=== PATIENT | female | born 2000 | race Two or more races ===

== ENCOUNTER 2024-09-18 14:30 | Outpatient (AMB) | payer OTHER, SELFPAY ==
--- NOTE | 2024-09-18 14:32 | MHC.OFFVIS ---
Intake Visit Reasons: Amenorrhea HPI Comments Details: Presenting complaining of pelvic cramping and increasing menstrual flow during her menstrual cycles since ParaGard IUD insertion 2 years ago no other associated GI or symptoms. No previous Pap smear. The patient is requesting STD screening. Review of Systems Const All systems reviewed & are unremarkable except as noted in HPI and below Reports as per HPI and Reports no additional complaints GI Reports no additional complaints Reports no additional complaints Physical Exam Other: The patient declined and would like to defer the exam for next visit Assessment & Plan Assessment & Plan (1) IUD check up: Code(s): Z30.431 - Encounter for routine checking of intrauterine contraceptive device Category: Medical Plan: Urine test done in the office was negative. Will order pelvic ultrasound to evaluate the location of the IUD. Instructions given the patient to schedule ultrasound follow-up appoint (2) Dysmenorrhea: Code(s): N94.6 - Dysmenorrhea, unspecified Category: Medical Plan: Discussed with the patient differential diagnosis dysmenorrhea, will schedule pelvic exam within 2 weeks, order pelvic ultrasound and collect GC and chlamydia with BV panel. All questions answered, the patient verbalized understood (3) Screen for STD (sexually transmitted disease): Code(s): Z11.3 - Encounter for screening for infections with a predominantly sexual mode of transmission Category: Medical Plan: STD screening tests done includes: BV panel for trichomonas, GC/CT will be done next during next visit since the patient declined pelvic exam, will send patient for serology std screening for HIV, RPR, Hep b s Ag, HepC Ab. Instructions given the patient to schedule a follow-up appointment for repeat serology screen in 6 months for possible false negatives. Orders: Orders US pelvic and transvaginal Today Z30.431 - Encounter for routine checking of intrauterine contraceptive device HIV Ab/Ag Today Z20.2 - Contact with and (suspected) exposure to infections with a predominantly sexual mode of transmission Syphilis Screen Today Z20.2 - Contact with and (suspected) exposure to infections with a predominantly sexual mode of transmission Hepatitis B Surface Antigen Today Z20.2 - Contact with and (suspected) exposure to infections with a predominantly sexual mode of transmission Hepatitis C Antibody Today Z20.2 - Contact with and (suspected) exposure to infections with a predominantly sexual mode of transmission Coding Level of Care Code New Pt Level 3 (99398) Diagnoses IUD check up Z30.431 Dysmenorrhea N94.6 Screen for STD (sexually transmitted disease) Z11.3
== END 2024-09-18 15:17 | disposition home or self-care (01) ==
PROVIDERS: PCP Internal Medicine; Visit Provider Obstetrics & Gynecology
DX: Z30.431 Encounter for routine checking of intrauterine contraceptive device (principal); N94.6 Dysmenorrhea, unspecified
CPT/HCPCS: 99203

== ENCOUNTER → 2024-09-18 14:30 | Outpatient (BNVA) | payer OTHER, SELFPAY | PROVIDERS: PCP Internal Medicine; Visit Provider Obstetrics & Gynecology | DX: Z30.431 Encounter for routine checking of intrauterine contraceptive device (principal); N94.6 Dysmenorrhea, unspecified | CPT/HCPCS: 99202 ==

== ENCOUNTER 2024-10-22 16:32 | Outpatient (REF) | payer OTHER, SELFPAY | END 2024-10-22 16:33 | disposition home or self-care (01) | LOC: HO.US 16:32 | PROVIDERS: PCP Physician Assistant Medical; Visit Provider Obstetrics & Gynecology | DX: Z30.431 Encounter for routine checking of intrauterine contraceptive device (principal) | CPT/HCPCS: 76830; 76856 ==

== ENCOUNTER 2024-11-18 14:31 | Outpatient (AMB) | payer OTHER, SELFPAY ==
--- NOTE | 2024-11-18 14:43 | A.OFFVIS_ITS ---
Vital Signs 11/18/24 14:44 Height 5 ft 3 in Weight 176 lb BMI 31.2 BP 122/70 Intake Visit Reasons: Vaginal itch Track Laying Equipment Operator Required: No Track Laying Equipment Operator Services: Track Laying Equipment Operator Present Information Interpreted: clinical only Food Cart Attendant: Food Cart Attendant Present Allergies No Known Allergies Allergy (Verified 11/18/24 14:45) Medication List - Last Reconciled 11/18/24 by Tina Kelley CNM copper (ParaGard T 380A) intrauterine Is last menstrual period known: Yes Last menstrual period: 11/07/24 HPI HPI Vaginal itch: Details: Scheduled here for vaginal itch but patient says it is actually because she has a bad vaginal odor that is really bothering her and she wants to get it checked out to see if she has an infection. She tells me she has an appointment for an annual exam but it is next week however that appointment will need to be rescheduled because the providers not in the office that day. Patient is 24 years old and has not to her knowledge had a Pap smear yet. She was seen for visit in October but did not go for the STI testing that was ordered to be done in the lab she had declined an exam on that day because she had her menstrual period and did not feel comfortable about it. she had a baby 2 years ago at [facility] and she said she had a ParaGard IUD inserted right after delivery while she had the epidural she did have a laceration but they sewed her up. She also says she had a vaginal bump on her left labia that was bothering her on the weekend but it appears to have popped and gone. She says she saw Dr. Collins in October because she was having pain with ovulation and she wanted to check on her IUD but she did not want an exam that day but she had an ultrasound done after that but she says next week she is supposed to go over that ultrasound him as well. PFSH Family History (Updated 11/18/24 @ 14:48 by Brittani Sanchez CMA) Mother HTN (hypertension) Social History (Updated 11/18/24 @ 14:47 by Brittani Sanchez CMA) Alcohol intake: current Alcohol intake frequency: holidays/special occasions only Patient Tobacco Use Status: Never used Tobacco Female Reproductive History Menstrual Age of Menarche: 13 Duration of menses: 3-5 days Date of last menstrual period: 11/07/24 control method: copper IUCD Total pregnancies: 1 Full term: 1 History of abnormal pap smear: No (no previous pap) Physical Exam Vital Signs: Last Vital Signs BP 122/70 11/18/24 14:44 BMI result Body Mass Index 31.2 Const General: healthy appearing, comfortable, no acute distress, well developed and alert Nutritional Appearance: average body habitus Orientation/consciousness: patient oriented x3 Limitations: no limitations HEENT Head: Yes normocephalic Neck Neck: Yes normal visual inspection Thyroid: Thyroid normal Chest Chest palpation & inspection: normal inspection of the chest Breast/axilla inspection: normal inspection of the breasts and normal inspection of the axillae Breast/axilla palpation: normal palpation of the breasts and normal palpation of the axillae Resp Effort & Inspection: normal respiratory effort GI Inspection: Yes normal to inspection, No Abdominal wall edema and No distended Palpation (GI): Soft to palpation and nontender Other: External exam within normal limits no lesion pimple bump swelling is noted whatsoever Vagina is pink and moist there is no abnormal discharge seen her cervix is multiparous pink midposition to anterior uterus is small firm retroverted there is no IUD string visible within the os I did a Pap smear today as patient is due and next week's appointment needs to be rescheduled and I do not want her to not have the Pap smear in a timely fashion. Testing was done today for gonorrhea chlamydia trichomoniasis yeast and Shanae I did discuss that it is a very common finding for there to be Gardnerella and not usually it her with thing her discharge appears very normal today. I did let her know that if anything shows up at all we will call her in treat her if all testing is negative it will be on/portal and I gave her a brochure in [place] so she can look it up. Meanwhile she will reschedule the appointment to go over the ultrasound results with Dr. Collins General: Yes bladder normal to palpation External Female Exam: normal external appearance and normal appearance of the urethra Speculum Exam - Vagina: normal appearance of the vagina, normal palpation and normal vaginal discharge Speculum Exam - Cervix: normal appearance of the cervix, normal palpation and nontender Bimanual exam- vagina & uterus: normal bimanual exam, normal palpation, uterine size normal, bladder normal to palpation, consistency normal, normal palpation, uterine mobility normal, uterine shape normal, No Cervical tenderness present, non-tender and no cervical motion tenderness Bimanual Exam- Adnexa, other: normal adnexae, no masses, normal and No adnexal tenderness Neuro General: patient oriented x3 Assessment & Plan Assessment & Plan (1) Screen for STD (sexually transmitted disease): Code(s): Z11.3 - Encounter for screening for infections with a predominantly sexual mode of transmission Category: Medical (2) Women's annual routine gynecological examination: Code(s): Z01.419 - Encounter for gynecological examination (general) (routine) without abnormal findings Category: Medical (3) control counseling: Comment: States she has ParaGard from immediately at [facility] 2 years ago, is awaiting review of ultrasound with Dr. Collins to assure it is in the correct place... Recommend no UPI until she is sure. Code(s): Z30.09 - Encounter for other general counseling and advice on contraception Category: Medical (4) Cervical cancer screening: Comment: Visit changed from problem visit to annual and Pap done 11/18/2024. Code(s): Z12.4 - Encounter for screening for malignant neoplasm of cervix Category: Medical Plan Since she was 24 years old and had a few visits without a Pap smear,(and next week's visit we will need to be rescheduled as well for office reasons) I elected to do a Pap smear today to ensure completeness of care. I also did the testing for gonorrhea chlamydia trichomoniasis bacterial vaginosis and yeast, if there is anything that shows up she would get treatment. If everything is negative it will be on the portal and I gave her a brochure in [place] so she can get onto that. 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 Collins anyway as it would need to be changed from next week at that visit she will review the ultrasound results. She said that the tech told her it was in there but that there was something that she needed to discuss with Dr. Collins so she needs to keep that appt ( or r/s it) she is not having any pain whatsoever with it today or with intercourse either I did recommend that she not have unprotected intercourse until she is sure everything is okay. We will await the test results to see if there is anything to treat I did show her her cervix and vagina the mirror and showed her completely normal clear scant discharge. And her cervix. Any laceration that was sutured has healed extremely well. -----Discussed in this visit the following: healthy balanced diet, regular and consistent exercise, getting recommended health screens, doing the best she can for her particular health concerns, kegel exercises, pap smear screening and followup recommendations, mammography screening and SBE, normal changes in cycles in her life stage--- . She sees her primary care provider where she works at [facility]. Orders: Orders CT NG by PCR Today N89.8 - Other specified noninflammatory disorders of vagina, Z20.2 - Contact with and (suspected) exposure to infections with a predominantly sexual mode of transmission Bacterial Vaginosis Panel Today N89.8 - Other specified noninflammatory disorders of vagina Pap Smear Today Z01.419 - Encounter for gynecological examination (general) (routine) without abnormal findings Coding Level of Care Code New Pt Prev Care 18-39yr([id number] Diagnoses Screen for STD (sexually transmitted disease) Z11.3 Women's annual routine gynecological examination Z01.419 control counseling Z30.09 Cervical cancer screening Z12.4
[2024-11-18 14:44] VITALS: BP 122/70; BMI 31.2
== END 2024-11-18 15:52 | disposition home or self-care (01) ==
PROVIDERS: PCP Physician Assistant Medical; Visit Provider Advanced Practice Midwife
DX: Z01.419 Encounter for gynecological examination (general) (routine) without abnormal findings (principal)
CPT/HCPCS: 99385; 99459

== ENCOUNTER 2024-11-18 14:31 | Outpatient (REF) | payer OTHER, SELFPAY ==
[2024-11-18 22:27] LABS: Bacterial Vaginosis PCR POSITIVE (Negative); Candida Group PCR NOT DETECTED (Not Detect); Candida glab krusei PCR NOT DETECTED (Not Detect); Trichomonas vaginalis PCR NOT DETECTED (Not Detect)
[2024-11-18 22:45] LABS: CT PCR NOT DETECTED (Not Detect.); NG PCR NOT DETECTED (Not Detect.)
== END 2024-11-18 14:32 | disposition home or self-care (01) ==
LOC: HO.LAB 14:31
PROVIDERS: PCP Physician Assistant Medical; Visit Provider Advanced Practice Midwife
DX: Z01.419 Encounter for gynecological examination (general) (routine) without abnormal findings (principal); Z20.2 Contact with and (suspected) exposure to infections with a predominantly sexual mode of transmission; N89.8 Other specified noninflammatory disorders of vagina
CPT/HCPCS: 81515; 87491; 87591; 99385; 99459

== ENCOUNTER 2025-04-28 13:51 | Outpatient (AMB) | payer OTHER, SELFPAY ==
--- NOTE | 2025-04-28 14:04 | MHC.OFFVIS ---
Vital Signs 04/28/25 14:04 Height 5 ft 3 in Intake Visit Reasons: ultrasound results/annual Allergies No Known Allergies Allergy (Verified 11/18/24 14:45) HPI Comments Details: Presenting for ultrasound follow-up. GC/CT was negative Last Pap smear in 11/29 was negative Ultrasound done recently showed the following: The retroverted uterus measures 8.2 x 4.1 x 5.[address] within the endometrial cavity. Visualization of the endometrium is limited due to shadowing artifact from the IUD. No significant free fluid. RIGHT ovary measures 3.2 x 1.8 x 2.0 cm, volume 6.0 mL. LEFT ovary measures 3.6 x 1.9 x 1.6 cm, volume 5.7 mL. PFSH Family History Mother HTN (hypertension) Social History Alcohol intake: current Alcohol intake frequency: holidays/special occasions only Patient Tobacco Use Status: Never used Tobacco Female Reproductive History Menstrual Age of Menarche: 13 Date of last pap smear: 11/19/24 Review of Systems Const All systems reviewed & are unremarkable except as noted in HPI and below Card Reports as per HPI Resp Reports as per HPI GI Reports as per HPI and Reports no additional complaints Reports as per HPI Assessment & Plan Assessment & Plan (1) Dysmenorrhea: Comment: With ParaGard IUD Code(s): N94.6 - Dysmenorrhea, unspecified Category: Medical Plan: Discussed with the patient the results GC/CT and normal ultrasound, recommended NSAIDs 600 mg p.o. q.8 hours. on a full stomach day 1-3 of menstrual cycles, if symptoms not improve recommended control pills cyclic versus continuous or Mirena IUD to decrease dysmenorrhea. All questions answered, the patient verbalized understanding Coding Level of Care Code Est Pt Level 3 (62903) Diagnoses Dysmenorrhea N94.6
--- OUTSIDE RECORDS SUMMARY | 2025-04-28 16:19 | XMS_ITS | Clinical Summary ---
Author Organization [facility] Address [address] [place] [address] Care Team Providers Care Radiology Equipment Servicer Name Role Phone Thong Russell PA-C Primary Care Provider Source Comments PLEASE NOTE, if this patient is a minor, it may be UNLAWFUL to discuss sensitive information that is contained in these records (such as FAMILY PLANNING, MENTAL HEALTH or SUBSTANCE ABUSE) with the minor patient's parent or other person without the patient's specific authorization.[facility] Allergies No known active allergies Medications copper (PARAGARD T 380A) 380 square mm IUD PLEASE BRING TO LABOR AND DELIVERY FOR INSERTION Active benzocaine-ment hoL (CHLORASEPTIC) 6-10 mg lozengeIndicati ons:Sore throat Take 1 Lozenge by mouth every 2 (two) hours as needed for sore throat 30 Lozenge 4 Active Active Problems No known active problems Encounters Date Type Department Care Team Description 02/13/2025 Results Follow-Up [facility] [address] [place] [address] Thong Russell PA-C 02/04/2025 11:00 AM EDT Office Visit [facility] [address] [place] [address] Nash Spicer DMD from Last 3 Months Immunizations Immunization Administration Dates Next Due Covaxin COVID-19 IV Non-US Vaccine 04/08/2021, HPV 9 (Gardasil) 09/01/2024,07/29/2024 Hep B,adult,adjuvanted (HEPLISAV) 10/21/2024, Influenza (FLUBLOK),recombinant,injectable,preservative Free 07/11/2024 MMR (MMR II/Priorix) 02/25/2024 Moderna COVID-19 (Spikevax), Mrna, Lnp-s, Pf, 50 Mcg/0.5 Ml, 12yr+ 09/05/2024 TDAP 05/11/2022 Family History Medical History Relation Name Comments Diabetes Father Breast cancer Maternal Aunt 36 yo Diabetes Maternal Grandfather Diabetes Maternal Grandmother Diabetes Mother Hypertension Mother Diabetes Other Diabetes Paternal Grandfather Diabetes Paternal Grandmother Relation Name Status Comments Father Maternal Aunt 36 yo Maternal Grandfather Maternal Grandmother Mother Other Paternal Grandfather Paternal Grandmother Social History Tobacco Use Types Packs/Day Years Used Date Smoking Tobacco: Never Smokeless Tobacco: Never Tobacco Cessation:Counseling Given: No Alcohol Use Standard Drinks/Week Comments Yes 0 (1 standard drink = 0.6 oz pur e alcohol) occasio Social Connections Answer Date Recorded Connectedness 1 01/21/2025 Financial Resource Strain Answer Date R ecorded Financial Resource Strain 1 2024 Stress Answer Date Recorded Stress 1 01/21/2025 Physical Activity Answer Date Recorded Physical Activity 0 02/20/2024 Food Insecurity Answer Date Recorded Food 1 01/21/2025 Transportation Needs Answer Date Record ed Transportation 1 01/21/2025 Housing Stability Answer Date Recorded Housing 1 01/21/2025 Safety and Environment Answer Date Eduardo rded Safety 1 07/29/2024 Utilities Answer Date Recorded Utilities 1 01/21/2025 Employment Answer Date Recorded Stress 0 07/29/2024 Comments No Sex and Gender Information Value Date Recorded Sex Assigned at Female 02/15/2024 8:32 AM PDT Legal Sex Female 8:21 AM PDT Gender Identity Female 02/15/2024 8:32 AM PDT Sexual Orientation Straight 02/15/2024 8: 32 AM PDT Last Filed Vital Signs Vital Sign Reading Time Taken Comments Blood Pressure 102/60 01/21/2025 3:17 PM EDT Pulse 85 01/21/2025 3:17 PM EDT Temperature 36.2 C (97.1 F) 01/21/2025 3:17 PM EDT Respiratory Rate 16 01/21/2025 3:17 PM EDT Oxygen Saturation 97% 01/21/2025 3:17 PM EDT Inhaled Oxygen Concentration - - Weight 80.2 kg (176 lb 12.8 oz) 01/21/2025 3:17 PM EDT Height 165.1 cm (5' 5 ) 01/21/2025 3:17 PM EDT Body Mass Index 29.42 01/21/2025 3:17 PM EDT Plan of Treatment Upcoming Encounters Date Type Department Care Team (Late st Contact Info) Description 06/12/2025 4:00 PM EDT [facility] Visit [facility] [address] [place] [phone] Nash Stephen, DDS [address] [place] [address] Health Maintenance Due Date Last Done Comments HPV Screening 2002 LARC-Paragard IUD 2002 Pap + HPV 2002 Cervical Cancer Screening 2023 Pap Smear 2023 Imm-HPV (3 - 3-dose series) 01/26/2025 09/01/2024, 0 07/29/2024 Chlamydia Screening 07/29/2025 07/29/2024 Gonorrhea Screening 07/29/2025 07/29/2024 Relationship Safety Screening/Counseling 07/29/2025 07/29/2024 Annual Wellness (Adult): Indicated (All Coverage) 01/21/2026 01/21/2025 Anxiety Screening 01/21/2026 01/21/2025 Hypertension Screening (#1) 01/21/2026 Tobacco Screening 01/21/2026 01/21/2025 Diabetes Screening 01/26/2026 01/26/2025, 0 01/26/2025, 09/02/2024, Additional history exists Imm-DTaP/Tdap/Td (2 - Td or Tdap) 05/11/2032 022 Imm-Influenza Completed 07/11/2024 HIV Screening Completed 07/29/2024 Hepatitis C Screening Completed 07/29/2024 [id number] Completed 09/05/2024, 06/0 02/2021, 03/14/2021 Imm-Hepatitis B Completed 10/21/2024, 09/01/2024 Alcohol and Drug Screen Completed 01/22/20, 10/21/2024, 07/29/2024 Depression Annual Screen Completed 01/21/2025 Cervical Ablation/Cold-Knife Conization Discontinued Cervical Cryotherapy Discontinued Colposcopy Discontinued Endometrial Biopsy Discontinued Excision/Leep Discontinued HPV Genotyping Discontinued Vaginal Pap Discontinued Vulvoscopy Discontinued Procedures Procedure Name Priority Date/Time Associated Diagnosis Comments 16 PANORAMIC RADIOGRAPHIC IMAGE Routine 02/04/2025 11:00 AM EDT Complete bony impaction of tooth 16 LIMITED ORAL EVALUATION - PROBLEM FOCUSED Routine 02/04/2025 11:00 AM EDT Complete bony impaction of tooth GENOTYPE PHENOTYPE REVIEW Routine 01/26/2025 9:07 AM EDT ALPHA GLOBIN DNA MUTATION ANALYSIS Routine 01/26/2025 9:07 AM EDT VITAMIN B12 & FOLATE Routine 01/26/2025 9:07 AM EDT Low mean corpuscular volume (MCV) THALASSEMIA AND HEMOGLOBINOPATHY COMPREHENSIVE Routine 01/26/2025 9:07 AM EDT Low mean corpuscular volume (MCV) IRON PANEL W TOTAL IRON BINDING CAPACITY Routine 01/26/2025 9:07 AM EDT Low mean corpuscular volume (MCV) HGBA1C W/MPG Routine 01/26/2025 9:07 AM EDT Prediabetes LIPID PANEL Routine 01/26/2025 9:07 AM EDT Prediabetes COMPREHENSIVE METABOLIC PANEL Routine 01/26/2025 9:07 AM EDT Prediabetes BLOOD COUNT COMPLETE AUTO&AUTO DIFRNTL WBC Routine 01/26/2025 9:07 AM EDT Prediabetes HIV 1/2 AG & AB W/RFLX (4TH GEN) Routine 07/29/2024 3:54 PM EDT Routine screening for STI (sexually transmitted infection) HEPATITIS C AB W/RFLX HCV RNA, QT, RT PCR Routine 07/29/2024 3:54 PM EDT Routine screening for STI (sexually transmitted infection) C TRACHOMATIS/N GONORRHOEAE RNA,TMA Routine 07/29/2024 3:54 PM EDT Routine screening for STI (sexually transmitted infection) from Last 3 Months or Most Recently Relevant to Health Maintenance Results * GENOTYPE PHENOTYPE REVIEW (01/26/2025 9:07 AM EDT) SUMMARY REPORT see note PAUL HOSKINS/Rajinder MOODY Comment: 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 This mutation is a 3.7 kilobase deletion between alpha2 and alpha1 globin genes resulting in a fusion gene in which the 5' end is alpha2 and the 3' end is alpha1. The protein product of this gene is identical to that of alpha2 or alpha1. Heterozygous individuals have silent alpha thalassemia phenotype. If this testing has been done for genetic counseling there is no risk for Barts hydrops fetalis (4 alpha globin gene deletion) but Hb H disease could occur if the second parent has alpha-thalassemia with two alpha genes deleted in cis. Worldwide, this is a very common mutation and is frequently seen in association with other hemoglobinopathies, such as Hb S, C, E, etc. REVIEWED BY see note [facility]INS/Rajinder MOODY Comment: Results were reviewed and interpreted by Maddie Lynne M.D. If physician or health provider needs additional information, please call . 01/26/2025 9:07 AM EDT 01/26/2025 9:08 AM EDT Narrative [facility] - 02/14/2025 12:59 AM EDT FASTING:YES us Thong Russell PA-C LAB - NO BLOOD DRAW Final Re sult [employer] [address] [place], [place] , [facility] [address] [place] * (ABNORMAL) ALPHA GLOBIN DNA MUTATION ANALYSIS (01/26/2025 9:07 AM EDT) RESULTS RECEIVED 02/11/25 [facility] [employer]/Rajinder [employer] [facility] Comment: Reference lab accession: [id number] Test performed by [employer] 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 This deletion removes one of the alpha-globin genes from the alpha-globin gene cluster. 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 Individuals with this genotype are usually clinically normal. If this patient is symptomatic, he or she may have an additional, rare alpha-thalassemia mutation. If the partner of this patient is a carrier of alpha(zero)-thalassemia, this couple is at-risk of having a child affected by Hemoglobin H disease. Family studies may be indicated. Genetic counseling is recommended. Laboratory results and submitted clinical information reviewed by Neelima Boudreaux, Ph.D., [facility]. Alpha-globin is an essential component of the hemoglobin tetramer, starting from the early stages of embryonic development. Deletion mutations involving one or both of the two alpha-globin genes (alpha1 and alpha2, located on chromosome 16p13) lead to reduced production of alpha-globin chains, and are the major cause of alpha-thalassemia. Severity of the disease is dependent on the total copy number of functional alpha-globin genes remaining. This assay detects the seven most common deletions (-alpha3.7, -alpha4.2, -alpha20.5, --SEA, --MED, --BALJINDER, and --KHMER) found in patients with alpha-thalassemia. This assay is performed by allele-specific PCR amplification of deletion mutation fragments, followed by agarose gel electrophoresis of the amplification products. It is not known what percentage of individuals with alpha-globin gene deletions will be detected by this test. For assistance with the interpretation of those results, please contact your local [employer] genetic counselor or call [phone] ([phone]). This test is performed pursuant to a license agreement with [employer] This test was developed and its analytical performance characteristics have been determined by [employer] [facility]. It has not been cleared or approved by the FDA. This assay has been validated pursuant to the CLIA regulations and is used for clinical purposes. A portion of the testing was performed at [facility]. Reviewed and signed by Laboratory results and submitted clinical information reviewed by Neelima Boudreaux, Ph.D., [facility], Signed on 02/11/2025 at 06:37 01/26/2025 9:07 AM EDT 01/26/2025 9:08 AM EDT Narrative [facility] - 02/14/2025 12:59 AM EDT FASTING:YES Thong Russell PA-C LAB - BLOOD DRAW Edited Resu lt - Final [facility] [address] [place] [address] [facility] [address] [place] [address] * (ABNORMAL) HGBA1C W/MPG (01/26/2025 9:07 AM EDT) Pathologist [facility] HEMOGLOBIN A1C 6.0(H) <5.7 % of total Hgb [employer] Comment: For someone without known diabetes, a hemoglobin A1c value between 5.7% and 6.4% is consistent with prediabetes and should be confirmed with a follow-up test. For someone with known diabetes, a value <7% indicates that their diabetes is well controlled. A1c targets should be individualized based on duration of diabetes, age, comorbid conditions, and other considerations. This assay result is consistent with an increased risk of diabetes. Currently, no consensus exists regarding use of hemoglobin A1c for diagnosis of diabetes for children. MEAN PLASMA GLUCOSE 136 mg/dL (calc) [employer] Blood Blood / Unknown 01/26/2025 9 :07 AM EDT 01/26/2025 9:08 AM EDT Narrative [facility] - 02/14/2025 12:59 AM EDT FASTING:YES Thong Russell PA-C LAB - BLOOD DRAW Edited Resu lt - Final [facility] [address] [address], [facility] [address] [place] [address] * (ABNORMAL) THALASSEMIA AND HEMOGLOBINOPATHY COMPREHENSIVE (01/26/2025 9:07 AM EDT) INTERPRETATION see note [facility]/ [facility] Comment: NO EVIDENCE OF A VARIANT HEMOGLOBIN, BETA THALASSEMIA OR IRON DEFICIENCY. SEE COMMENT. In view of the patient's decreased MCV/MCH, molecular testing for alpha thalassemia has been added. A summary report will be issued when those results are available. REVIEWED BY see note [facility]/ DANO [facility] Comment: Results were reviewed and interpreted by Vandana Malik M.D. If physician or health provider needs additional information, please call . HEMOGLOBIN A 97.3 >96.0 % [facility]/ MATSON CHANTILLY HEMOGLOBIN F 0.0 <2.0 % [facility] MAT[facility] CHANTILLY HEMOGLOBIN A2 (QUANT) 2.7 2.0 - 3.2 % [facility] MAT[facility] CHANTILLY C-Z ELECTROPHORESIS Confirms [facility]/ MAT[facility] CHANTILLY RED BLOOD CELL COUNT 4.91 3.80 - 5.10 Mill/uL [facility] MAT[facility] CHANTILLY HEMOGLOBIN 11.7 11.7 - 15.5 g/dL [facility]/ MATSON CHANTILLY HEMATOCRIT 37.3 35.0 - 45.0 % [facility] MATSON CHANTILLY MCV 76.0(L) 80.0 - 100.0 fL [facility]/ MATSON CHANTILLY MCH 23.8(L) 27.0 - 33.0 pg [facility]/ MATSON CHANTILLY MCHC 31.4(L) 32.0 - 36.0 g/dL [facility]/ MATSON CHANTILLY Comment: For adults, a slight decrease in the calculated MCHC value (in the range of 30 to 32 g/dL) is most likely not clinically significant; however, it should be interpreted with caution in correlation with other red cell parameters and the patient's clinical condition. RDW 13.7 11.0 - 15.0 % [facility]/ MATSON MONALISAHaul [employer] FERRITIN 27 16 - 154 ng/mL [facility]/ [employer] Blood Blood / Unknown 01/26/2025 9 :07 AM EDT 01/26/2025 9:08 AM EDT Narrative [facility] - 02/14/2025 12:59 AM EDT FASTING:YES us Thong Russell PA-C LAB - BLOOD DRAW Edited Resu lt - Final Performing Organization Address City/[facility]/ZIP Co de Phone Number [facility] [address] [place], [place] , EQ works/[employer] [address] [place] [address] * IRON PANEL W TOTAL IRON BINDING CAPACITY (01/26/2025 9:07 AM EDT) Pathologist [facility] IRON, TOTAL 68 40 - 190 mcg/dL [facility] IRON BINDING CAPACITY 405 250 - 450 mcg/dL (calc) [facility] % SATURATION 17 16 - 45 % (calc) [facility] Blood Blood / Unknown 01/26/2025 9 :07 AM EDT 01/26/2025 9:08 AM EDT Narrative [employer] - 02/14/2025 12:59 AM EDT FASTING:YES us Thong Russell PA-C LAB - BLOOD DRAW Edited Resu lt - Final [employer] [facility] [address] [address], [employer] [facility] [address] [place] [address] * VITAMIN B12 & FOLATE (01/26/2025 9:07 AM EDT) VITAMIN B12 808 200 - 1,100 pg/mL [facility] FOLATE, SERUM 12.6 5.5 ng/mL [employer] [facility] Comment: Reference Range Low: <3.4 Borderline: 3.4-5.4 Normal: >5.4 Blood Blood / Unknown 01/26/2025 9 :07 AM EDT 01/26/2025 9:08 AM EDT Narrative [employer] [facility] - 02/14/2025 12:59 AM EDT FASTING:YES Thong Russell PA-C LAB - BLOOD DRAW Edited Resu lt - Final [facility] [address] [address], [facility] [address] [address] * (ABNORMAL) BLOOD COUNT COMPLETE AUTO&AUTO DIFRNTL WBC (01/26/2025 9:07 AM EDT) Pathologist [facility] WHITE BLOOD CELL COUNT 5.3 3.8 - 10.8 Thousand/ uL [facility] RED BLOOD CELL COUNT 4.88 3.80 - 5.10 Million/u L [facility] HEMOGLOBIN 11.8 11.7 - 15.5 g/dL [facility] HEMATOCRIT 37.8 35.0 - 45.0 % [facility] [place] [employer] MCV 77.5(L) 80.0 - 100.0 fL [facility] [place] [employer] MCH 24.2(L) 27.0 - 33.0 pg [facility] MCHC 31.2(L) 32.0 - 36.0 g/dL [employer] Comment: For adults, a slight decrease in the calculated MCHC value (in the range of 30 to 32 g/dL) is most likely not clinically significant; however, it should be interpreted with caution in correlation with other red cell parameters and the patient's clinical condition. RDW 13.6 11.0 - 15.0 % [employer] PLATELET COUNT 396 140 - 400 Thousand/ uL [employer] MPV 9.4 7.5 - 12.5 fL [employer] ABSOLUTE NEUTROPHILS 2,009 1,500 - 7,800 cells/uL [employer] ABSOLUTE LYMPHOCYTES 2,708 850 - 3,900 cells/uL [facility] ABSOLUTE MONOCYTES 355 200 - 950 cells/uL [facility] ABSOLUTE EOSINOPHILS 196 15 - 500 cells/uL [facility] [employer] [facility] ABSOLUTE BASOPHILS 32 0 - 200 cells/uL [facility] NEUTROPHILS PCT 37.9 % [facility] [facility] LYMPHOCYTES 51.1 % [facility] DI AGN[employer] [facility] MONOCYTES 6.7 % [facility] [employer] [facility] EOSINOPHILS 3.7 % [facility] DI AGNQubulus [facility] BASOPHILS 0.6 % [facility] [employer] [facility] Blood Blood / Unknown 01/26/2025 9:07 AM EDT 01/26/2025 9:08 AM EDT Narrative [employer] [facility] - 02/14/2025 12:59 AM EDT FASTING:YES Thong Russell PA-C LAB - BLOOD DRAW Edited Resu lt - Final [facility] [address] [address], [facility] [address] [address] * LIPID PANEL (01/26/2025 9:07 AM EDT) CHOLESTEROL, TOTAL 156 <200 mg/dL [facility] HDL CHOLESTEROL 51 > OR = 50 mg/dL [facility] TRIGLYCERIDES 66 <150 mg/dL [facility] LDL-CHOLESTEROL 90 99 mg/dL (calc) [facility] Comment: Reference range: <100 Desirable range <100 mg/dL for primary prevention; <70 mg/dL for patients with CHD or diabetic patients with > or = 2 CHD risk factors. LDL-C is now calculated using the Smith-Ashkan calculation, which is a validated novel method providing better accuracy than the Friedewald equation in the estimation of LDL-C. Smith SS et al. SCOUT. 2013;310(19): 5821-3578 (http://education.Benaissance/faq/RIL388) CHOL/HDLC RATIO 3.1 <5.0 (calc) [facility] NON-HDL CHOLESTEROL 105 <130 mg/dL (calc) [facility] Comment: For patients with diabetes plus 1 major ASCVD risk factor, treating to a non-HDL-C goal of <100 mg/dL (LDL-C of <70 mg/dL) is considered a therapeutic option. Blood Blood / Unknown 01/26/2025 9 :07 AM EDT 01/26/2025 9:08 AM EDT Narrative [employer] [facility] - 02/14/2025 12:59 AM EDT FASTING:YES Thong Russell PA-C LAB - BLOOD DRAW Final Resul t [facility] [address] [address], [facility] [address] [place] [address] * (ABNORMAL) COMPREHENSIVE METABOLIC PANEL (01/26/2025 9:07 AM EDT) GLUCOSE 93 65 - 99 mg/dL [facility] Comment: Fasting reference interval UREA NITROGEN (BUN) 10 7 - 25 mg/dL [facility] CREATININE (blood) 0.55 0.50 - 0.96 mg/dL [facility] EGFR 133 > OR = 60 mL/min/1. 73m2 [facility] BUN/CREATININE RATIO SEE NOTE: [facility] Comment: Not Reported: BUN and Creatinine are within reference range. SODIUM 134(L) 135 - 146 mmol/L [facility] POTASSIUM 4.2 3.5 - 5.3 mmol/L [facility] CHLORIDE 102 98 - 110 mmol/L [facility] CARBON DIOXIDE 25 20 - 32 mmol/L [facility] CALCIUM 9.3 8.6 - 10.2 mg/dL [facility] PROTEIN, TOTAL 7.5 6.1 - 8.1 g/dL [facility] ALBUMIN 4.5 3.6 - 5.1 g/dL [facility] GLOBULIN 3.0 1.9 - 3.7 g/dL (calc) [facility] ALBUMIN/GLOBULI N RATIO 1.5 1.0 - 2.5 (calc) [facility] BILIRUBIN, TOTAL 0.4 0.2 - 1.2 mg/dL [facility] ALKALINE PHOSPHATASE 81 31 - 125 U/L [facility] AST 14 10 - 30 U/L [facility] ALT 15 6 - 29 U/L [facility] Blood Blood / Unknown 01/26/2025 9 :07 AM EDT 01/26/2025 9:08 AM EDT Narrative [facility] - 02/14/2025 12:59 AM EDT FASTING:YES Krishlamine Russell PA-C LAB - BLOOD DRAW Edited Resu lt - Final Performing Organization Address [facility]/ZIP Co de Phone Number [facility] [address] [address], [employer] [address] [address] * HEPATITIS C AB W/RFLX HCV RNA, QT, RT PCR (07/29/2024 3:54 PM EDT) HEPATITIS C ANTIBODY NON-REACT PATTI NON-REACT PATTI [facility] Comment: HCV antibody was non-reactive. There is no laboratory evidence of HCV infection. In most cases, no further action is required. However, if recent HCV exposure is suspected, a test for HCV RNA (test code 18837) is suggested. For additional information please refer to http://education.ChannelEyes/faq/TUT45v8 (This link is being provided for informational/ educational purposes only.) Blood Blood / Unknown 07/29/2024 3 :54 PM EDT 07/29/2024 3:54 PM EDT Thong Russell PA-C LAB - BLOOD DRAW Edited Resu lt - Final Performing Organization Address [facility]/ZIP Co de Phone Number [facility] [address] [address], [employer] [address] [address] * HIV 1/2 AG & AB W/RFLX (4TH GEN) (07/29/2024 3:54 PM EDT) HIV AG/AB, 4TH GEN NON-REAC TIVE NON-REAC TIVE [facility] Comment: HIV-1 antigen and HIV-1/HIV-2 antibodies were not detected. There is no laboratory evidence of HIV infection. PLEASE NOTE: This information has been disclosed to you from records whose confidentiality may be protected by state law. If your state requires such protection, then the state law prohibits you from making any further disclosure of the information without the specific written consent of the person to whom it pertains, or as otherwise permitted by law. A general authorization for the release of medical or other information is NOT sufficient for this purpose. For additional information please refer to http://3Guppies.ChannelEyes/faq/GTC405 (This link is being provided for informational/ educational purposes only.) The performance of this assay has not been clinically validated in patients less than 2 years old. Blood Blood / Unknown 07/29/2024 3 :54 PM EDT 07/29/2024 3:54 PM EDT Thong Russell PA-C LAB - BLOOD DRAW Final Resul t [employer] [address] [place] [address], [facility] [address] [address] * CHLAMYDIA/GONORRHOEAE RNA, TMA, URINE (07/29/2024 3:54 PM EDT) CHLAMYDIA TRACHOMATIS RNA, TMA NOT DETECTED NOT DETECTED [facility] NEISSERIA GONORRHOEAE RNA, TMA NOT DETECTED NOT DETECTED [employer] [facility] COMMENT [facility] Urine Urine specimen / Unknown 07/29/2024 3:54 PM EDT 07/29/2024 3:54 PM EDT Narrative [facility] [employer] - 07/30/2024 3:42 PM EDT The analytical performance characteristics of this assay, when used to test SurePath(TM) specimens have been determined by [employer]. The modifications have not been cleared or approved by the FDA. This assay has been validated pursuant to the CLIA regulations and is used for clinical purposes. For additional information, please refer to https://3Guppies.ChannelEyes/faq/FAF613 (This link is being provided for information/ educational purposes only.) Thong Russell PA-C LAB BODY FLUIDS AND STOOLS A MBULATORY Final Result [facility] [address] [address], [facility] [address] [place] [address] from Last 3 Months or Most Recently Relevant to Health Maintenance Insurance [employer] Member Subscriber Plan / Payer ( fective 2025-Present) Name:Donald Betty Relation to Subscriber:Self Name:Betty Bennett Payer ID:[id number] Group ID:Not on file Type:Indemnity Address: [facility] [address] [place] [address] [place] DENT[place] Care Teams Radiology Equipment Servicer Relationship Specialty Start Date End Date Thong Russell PA-C [address] [place] [address] PCP - General [place]ILY [facility]ICINE, [place] 07/29/24
== END 2025-04-28 14:32 | disposition home or self-care (01) ==
PROVIDERS: PCP Physician Assistant Medical; Visit Provider Obstetrics & Gynecology
DX: N94.6 Dysmenorrhea, unspecified (principal)
CPT/HCPCS: 99213

== ENCOUNTER → 2025-04-28 13:51 | Outpatient (BNVA) | payer OTHER, SELFPAY | PROVIDERS: PCP Physician Assistant Medical; Visit Provider Obstetrics & Gynecology | DX: Z71.2 Person consulting for explanation of examination or test findings (principal); N94.6 Dysmenorrhea, unspecified | CPT/HCPCS: 99212 ==

== ENCOUNTER 2025-09-28 07:25 | Outpatient (AMB) | payer OTHER, SELFPAY ==
--- NOTE | 2025-09-28 07:33 | MHC.OFFVIS ---
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 Information Interpreted: non-clinical & clinical Accompanied by: Self / Same As Patient Allergies No Known Allergies Allergy (Verified 09/28/25 07:38) Is last menstrual period known: Yes Last menstrual period: 09/15/25 HPI Comments Details: Presenting requesting ParaGard IUD removal, the patient is interested in conception [facility] Medical History Diabetes Family History Mother HTN (hypertension) Diabetes Father Diabetes Maternal Grandfather Diabetes Maternal Grandmother Diabetes Paternal Grandfather Diabetes Paternal Grandmother Diabetes Social History Household Members: Spouse Household Members Other:: son Housing: House Alcohol intake: current Alcohol intake frequency: holidays/special occasions only Patient Tobacco Use Status: Never used Tobacco Current occupational status: employed Current occupation: [employer] Sexual orientation: Straight/Heterosexual Gender identity: Female Female Reproductive History Menstrual Age of Menarche: 13 Date of last menstrual period: 09/15/25 control method: copper IUCD Total pregnancies: 1 Full term: 1 Number of Living Children: 1 Date of last pap smear: 11/19/24 Review of Systems Const All systems reviewed & are unremarkable except as noted in HPI and below Physical Exam Vital Signs: Last Vital Signs BP 116/68 09/28/25 07:35 BMI result Body Mass Index 29.8 General: Yes no CVA tenderness External Female Exam: normal external appearance and normal appearance of the urethra Speculum Exam - Vagina: normal appearance of the vagina, normal palpation, no lesions and no masses Speculum Exam - Cervix: normal appearance of the cervix, normal palpation, no lesions, no masses and nontender Bimanual exam- vagina & uterus: normal bimanual exam, normal palpation, uterine size normal, normal palpation, uterine shape normal, No Cervical tenderness present and non-tender Bimanual Exam- Adnexa, other: normal adnexae Back/Spine/Pelvis Back: no CVA tenderness Office Procedures IUD Insert/Removal Details Details: Counseling/Consent: After discussing with the patient the risks of the procedure including bleeding, infection, scar tissue formation, , possible injury to blood vessels or nerves, chronic arm pain, blood transfusion, and irregular unpredictable bleeding Alternative options were discussed with the patient including but not limited: Do nothing. The patient signed the consent and agreed with the plan; all questions answered. Urine test was done in the office and was negative Preop dx: Requesting ParaGard IUD removal Op: IUD removal Post op dx: same EBL= 10 cc Procedure: The patient was put in the dorsal lithotomy position a speculum was inserted in the vagina the IUD thread identified. Using a Fabienne clamp the thread was grasped and the IUD pulled out with no complications. The patient tolerated the procedure well and was advised to use a different method for contraception. Discharge instructions: Instructions were given to the pt to call if temp>100.4, abdominal pain heavy vaginal bleeding, n/v occur. The patient verbalized understanding and all questions answered. This note was generated with a voice recognition program. Some errors may have been overlooked during the review of this note. Sometimes these errors may affect the content or meaning of a given sentence. 70031-ZTS Removal Procedure code (CPT) selection complete Results AMB Test Urine AMB Test Urine Negative Last Edit by Zainab Fernandez CMA on 09/28/25 07:45 Assessment & Plan Assessment & Plan (1) Encounter for IUD removal: Code(s): Z30.432 - Encounter for removal of intrauterine contraceptive device Category: Medical Plan: GC/CT collected, urine test done ParaGard IUD removed, see procedure note The patient is not interested in control is interested in Orders: Orders AMB HCG Urine Test Today Z32.02 - Encounter for test, result negative Coding Level of Care Code Procedure Only Diagnoses Encounter for IUD removal Z30.432 CPT Codes Details - CPT: 74517-RUD Removal ([id number])
[2025-09-28 07:35] VITALS: BP 116/68; BMI 29.8
== END 2025-09-28 08:09 | disposition home or self-care (01) ==
LOC: HO.HWS 07:26
PROVIDERS: PCP Physician Assistant Medical; Visit Provider Obstetrics & Gynecology
DX: Z30.432 Encounter for removal of intrauterine contraceptive device (principal); Z32.02 Encounter for pregnancy test, result negative
CPT/HCPCS: 58301

== ENCOUNTER 2025-09-28 07:25 | Outpatient (REF) | payer OTHER, SELFPAY ==
--- OUTSIDE RECORDS SUMMARY | 2025-09-28 08:18 | XMS_ITS | Data Portability ---
Author Organization [facility] Telemedicine Address [address] [place] [address] Assessment No assessment recorded. Plan of Treatment Reminders Order Date Submit Date Provider Last Modified By Organization Details Last Modified Time Details Appointments None recorded. Lab NG RNA, qual, PCR, unspecified specimen 2022 023 [facility] [address] [place] [address], [id number], 3 08:08:42 Mycobacteri um tuberculosi s stimulated gamma interferon, qual, blood 2022 023 [facility] [address] [place] [address], [id number], 3 08:08:40 RPR (rapid plasma reagin), serum 2022 023 [facility] [address] [place] [address], [id number], 3 08:08:41 Referral None recorded. Procedures None recorded. Surgeries None recorded. Imaging None recorded. Medication Orders None recorded. Patient TargetsNo targets recorded. Patient InstructionsNo instructions recorded. Reason for Referral None Reported. Problems No Known Problems Medical Equipment None Reported. Allergies No known drug allergies Medications Name Sig Start Date Stop Date Status Note LastModified by Organization Details LastModified Time FreeStyle Lancets 28 gauge active Not Available Not Available Not Available hydroxyzine pamoate 50 mg capsule active Not Available Not Available N ot Available OneTouch Ultra Test strips USE 4 TIMES A DAY FOR BLOOD SUGAR TESTING FOR GESTATIONAL DIABETES MELLITUS active Not Available Not Available No t Available ParaGard T 380A 380 square mm intrauterine device PLEASE BRING TO LABOR AND DELIVERY FOR INSERTION active Not Available Not Available No t Available Alcohol Prep Pads USE TO CLEAN THE SKIN BEFORE TESTING BLOOD SUGARS FOUR TIMES A DAY DIRECTED active Not Available Not Available Not Available OneTouch Ultra2 Meter USE DIRECTED TO TEST BLOOD SUGAR FOUR TIMES A DAY DURING active Not Available Not Available No t Available OneTouch Delica Plus Lancet 33 gauge USE DIRECTED TO TEST BLOOD SUGAR FOUR TIMES A DAY DURING active Not Available Not Available No t Available Paxlovid 300 mg (150 mg x 2)-100 mg tablets in a dose pack USE DIRECTED ON PACKAGE LABELING FOR 5 DAYS active Not Available Not Available N ot Available Vitals Date Recorded Body weight Body mass index (BMI) [Percentile] Per age and sex Body height Heart rate Body temperature Oxygen saturation Systolic And Diastolic Provider Name and Address Organization Details Last Updated DateTime 3 47839.9 3 g 86 % 167.64 cm 89 /min 98.4 [degF] 98 % 121/60 mm[Hg] moris garcia [facility] 15:16:25 Social History None recorded. Functional Status None recorded. Mental Status None recorded. Family History Nothing Reported. Medical History No medical history recorded. Gynecological HistoryNo gynecological history recorded. Obstetrics History GPAL:G 0 P 0 0 0 0 Immunizations Vaccine Type Date Status Note Provider Nam e and Address Organization Details Recorded Time COVID-19 IV Non-US Vaccine (CoronaVac, Sinovac) 04/08/2021 [place], [address], [facility] 12/25/2022 15:47:46 COVID-19 IV Non-US Vaccine (CoronaVac, Sinovac) 03/14/2021 [place], [address], [facility] 12/25/2022 15:47:46 Tdap 05/11/2022 [place], [address], [facility] 12/25/2022 15:47:46 Past Encounters Encounter ID Performer Location Encounter Start Date Encounter Closed Date Diagnosis/Indication Diagnosis SNOMED-CT Code Diagnosis ICD10 Code Diagnosis IMO Codes Diagnosis Note [id number] MD MICHAEL Walton AND [facility] [address] [place] [address] 12/25/2022 15:13:22 12/25/2022 15:50:01 History and physical examination, immigration [id number] Z02.89 covid and Tdap doneshe will provide MMR, varicella and Flu HBV Health Concerns Section Related Observation LastModified by Organization Detai ls LastModified Time None Recorded Concern Status LastModified by Organization Details LastModified Time None Recorded Advance Directives Directive None Recorded Payers Insurance Date Sequence Insurance Name Policy Number Policy Milner Covered Member ID Milner Member ID Guarantor Name 12/26/2022 1 [employer] (POS) Betty Quezada [id number] Betty Quezada Notes Date Note Type Note Provider Name and Address Organization Details Recorded Time 12/25/2022 text/html Annual WellnessReported by Patienthere for immigration exam PCP: [facility] , 12/25/2020 work : not no hx STD , drug use , no mental issue no chronic cough , night weating sob or wt lost From: [place] 1PMHX: NoneMed: none OLAF Wallace [address] [place], [address], [facility] 12/25/2022 15:49:55 OBGyn Episode No OBEpisode recorded.
[2025-09-28 14:20] LABS: CT PCR NOT DETECTED (Not Detect.); NG PCR NOT DETECTED (Not Detect.)
== END 2025-09-28 07:26 | disposition home or self-care (01) ==
LOC: HO.LNP 07:25
PROVIDERS: PCP Physician Assistant Medical; Visit Provider Obstetrics & Gynecology
DX: Z30.432 Encounter for removal of intrauterine contraceptive device (principal); Z32.02 Encounter for pregnancy test, result negative; Z20.2 Contact with and (suspected) exposure to infections with a predominantly sexual mode of transmission
CPT/HCPCS: 87491; 87591